=== PATIENT | female | born 1960 | race Caucasian/White ===

== ENCOUNTER 2017-09-16 19:18 | Emergency (ER) | payer BC ==
[~2017-09-16] VITALS: Ht 162.6 cm; Wt 81.6 kg
--- NOTE | 2017-09-16 20:18 | Diagnostic Imaging Report ---
Radiographs of the cervical spine - 5 views with bilateral obliques HISTORY: Pain COMPARISON: None available. FINDINGS: Bones: No acute displaced fracture. Osseous alignment is within normal limits. Joints: Scattered degenerative change. No osseous erosion. Soft tissues: The soft tissues appear unremarkable. IMPRESSION: Scattered degenerative change. No osseous erosion. Subtle fracture and soft tissue injury cannot be excluded based on this exam. If indicated MRI may be of benefit. Signed by: Dr. Jacob Vaughn M.D. on 09/16/2017 8:14 PM
== END 2017-09-16 21:05 | disposition left against medical advice (07) ==
LOC: ER 19:18
DX: M54.2 Cervicalgia (principal)
CPT/HCPCS: 72050

== ENCOUNTER 2018-08-03 09:17 | Emergency (ER) | payer BC ==
[~2018-08-03] VITALS: Ht 162.6 cm; Wt 81.6 kg
--- OUTSIDE RECORDS SUMMARY | 2018-08-03 09:20 | XMS REPORT ---
Author Author [facility] [place] Address Unknown Phone Unavailable Care Team Providers Care Doping Supervisor Name Role Phone Zaid DOBSON Unavailable Unavailable Problems This patient has no known problems. Allergies, Adverse Reactions, Alerts This patient has no known allergies or adverse reactions. Medications This patient has no known medications. Results Test Description Test Time Test Comments Text Results Atomic Results Result Comments CERVICAL SPINE 4 OR 5 VIEWS [place] [address] Patient Name: KRISTINE ZAVALA MR #: [id number] : 1960 Age/Sex: 57/F Req #: [id number] Adm Physician: Ordered by: MEGHAN DOBSON MD Report #: [id number] Location: ER Room/Bed: Procedure: [id number] DX/CERVICAL SPINE 4 OR 5 VIEWS Exam Date: 09/16/17 Exam Time: 1950 REPORT STATUS: Signed Radiographs of the cervical spine - 5 views with bilateral obliques HISTORY: Pain COMPARISON: None available. FINDINGS: Bones: No acute displaced fracture. Osseous alignment is within normal limits. Joints: Scattered degenerative change. No osseous erosion. Soft tissues: The soft tissues appear unremarkable. IMPRESSION: Scattered degenerative change. No osseous erosion. Subtle fracture and soft tissue injury cannot be excluded based on this exam. If indicated MRI may be of benefit. Signed by: Dr. Jacob Vaughn M.D. on 09/16/2017 8:14 PM Dictated By: JACOB VAUGHN MD, MD 13 Transcribed By: KELVIN on 09/16/172013 COPY TO: MEGHAN DOBSON MD
[2018-08-03] MEDS ORDERED: HYDROCODONE/APAP 5MG-325MG TAB PO NR (10:15)
[2018-08-03] MEDS ORDERED: DIAZEPAM 2 MG TAB PO NR (10:15)
[2018-08-03] MEDS ORDERED: KETOROLAC TROMETHAMINE 30 MG/ML VIAL IM PRN (10:15)
[2018-08-03] MEDS ORDERED: PREDNISONE 20 MG TAB PO NR (10:30)
[2018-08-03] MEDS ORDERED: PREDNISONE20 MG PO (10:32)
[2018-08-03] MEDS ORDERED: SKELAXIN800 MG PO (10:32)
[2018-08-03] MEDS ORDERED: ULTRAM 50MG50 MG PO (10:32)
[2018-08-03 12:25] VITALS: BP 137/72
== END 2018-08-03 12:35 | disposition home or self-care (01) ==
LOC: ER 09:19
DX: M54.5 Low back pain (principal); S39.012A Strain of muscle, fascia and tendon of lower back, initial encounter; X50.1XXA Overexertion from prolonged static or awkward postures, initial encounter; Y92.008 Other place in unspecified non-institutional (private) residence as the place of occurrence of the external cause
CPT/HCPCS: 99283; J1885; J7512

== ENCOUNTER 2019-05-06 18:13 | Emergency (ER) | payer BC ==
[~2019-05-06] VITALS: Ht 162.6 cm; Wt 81.6 kg
[~2019-05-06 18:13] MED LIST: PREDNISONE20 MG PO; SKELAXIN800 MG PO; ULTRAM 50MG50 MG PO
[2019-05-06] MEDS ORDERED: KETOROLAC TROMETHAMINE 60 MG/2 ML VIAL IM ONE (18:30)
[2019-05-06] MEDS ORDERED: CYCLOBENZAPRINE HCL 10 MG TAB PO ONE (18:30)
[2019-05-06] MEDS ORDERED: HYDROCODONE/APAP 10MG-325MG TAB PO ONE (18:30)
[2019-05-06] MEDS ORDERED: DEXAMETHASONE SOD PHOS 10 MG/1 ML VIAL IM ONE (18:30)
--- NOTE | 2019-05-06 20:20 | Diagnostic Imaging Report ---
EXAMINATION: Lumbar spine series. CLINICAL HISTORY: Bulging disc for 2 years, low back pain COMPARISON: CT lumbar spine 11/26/2010 DISCUSSION: 5 views of the lumbar spine are submitted for interpretation. Five nonrib-bearing lumbar type vertebral bodies are identified. No acute, displaced fractures or subluxation. No significant spondylolisthesis. Bilateral oblique views show no spondylolysis. Mild intervertebral disc space narrowing at L5-S1. Vertebral body heights are preserved. No lytic or blastic lesions. Slight leftward curvature of the lower lumbar spine. Sacroiliac joints are grossly unremarkable. Soft tissues have a normal appearance. IMPRESSION: 1. No acute abnormalities. 2. Mild degenerative disc changes at L5-S1 with slight leftward curvature of the lower lumbar spine. The staff physician below has personally reviewed this exam on the date of dictation. Signed by: Dr. Edison Cortez M.D. on 05/06/2019 8:17 PM
[2019-05-06 20:45] VITALS: BP 139/87
== END 2019-05-06 20:53 | disposition home or self-care (01) ==
LOC: ER 18:13
DX: S39.012A Strain of muscle, fascia and tendon of lower back, initial encounter (principal); X50.1XXA Overexertion from prolonged static or awkward postures, initial encounter; Y93.H2 Activity, gardening and landscaping; Y92.007 Garden or yard of unspecified non-institutional (private) residence as the place of occurrence of the external cause; G89.29 Other chronic pain
CPT/HCPCS: 72110; 99283; J1100; J1885

== ENCOUNTER 2021-12-30 07:24 | Emergency (ER) | payer BC ==
[~2021-12-30] VITALS: Ht 162.6 cm; Wt 81.6 kg
[~2021-12-30 07:24] MED LIST changes: +METHOCARBAMOL500 MG PO; +NAPROSYN500 MG PO
[2021-12-30] MEDS ORDERED: KETOROLAC TROMETHAMINE 30 MG/ML VIAL IM STA (07:36)
[2021-12-30] MEDS ORDERED: CYCLOBENZAPRINE HCL 10 MG TAB PO ONE (07:45)
[2021-12-30] MEDS ORDERED: CYCLOBENZAPRINE10 MG PO (07:50)
[2021-12-30] MEDS ORDERED: CYCLOBENZAPRINE HCL 10 MG TAB ONE (07:52)
[2021-12-30] MEDS ORDERED: KETOROLAC TROMETHAMINE 30 MG/ML VIAL ONE (07:52)
== END 2021-12-30 07:55 | disposition home or self-care (01) ==
LOC: ER 07:30
DX: M54.42 Lumbago with sciatica, left side (principal); G89.29 Other chronic pain
CPT/HCPCS: 99282; J1885

== ENCOUNTER 2022-07-14 08:48 | Emergency (ER) | payer BC, OTHER ==
[~2022-07-14] VITALS: Ht 162.6 cm; Wt 81.6 kg
[~2022-07-14 08:48] MED LIST changes: +CYCLOBENZAPRINE10 MG PO
[2022-07-14] MEDS ORDERED: DEXAMETHASONE SOD PHOS 10 MG/1 ML VIAL IM ONE (09:15)
[2022-07-14] MEDS ORDERED: KETOROLAC TROMETHAMINE 60 MG/2 ML VIAL IM ONE (09:15)
[2022-07-14] MEDS ORDERED: KETOROLAC TROMETHAMINE 30 MG/ML VIAL ONE (09:32)
[2022-07-14] MEDS ORDERED: MEDROL4 M2 PO (09:58)
[2022-07-14] MEDS ORDERED: MELOXICAM7.5 MG PO (09:58)
[2022-07-14] MEDS ORDERED: METHOCARBAMOL500 MG PO (09:58)
== END 2022-07-14 10:12 | disposition home or self-care (01) ==
LOC: ER 09:14
DX: M54.42 Lumbago with sciatica, left side (principal); X50.1XXA Overexertion from prolonged static or awkward postures, initial encounter; Y92.89 Other specified places as the place of occurrence of the external cause; G89.29 Other chronic pain
CPT/HCPCS: 99282; J1100; J1885

== ENCOUNTER 2024-02-19 16:56 | Emergency (ER) | payer BC ==
[~2024-02-19] VITALS: Ht 162.6 cm; Wt 81.6 kg
[~2024-02-19 16:56] MED LIST changes: +KETOROLAC TROME10 MG PO; +MEDROL4 M2 PO; +MELOXICAM7.5 MG PO; +METHOCARBAMOL750 MG PO; +NAPROXEN250 MG PO
[2024-02-19 17:03] VITALS: PULSE 67; RESP 15; TEMP 98.1; O2SAT 100
[2024-02-19] MEDS ORDERED: KETOROLAC TROMETHAMINE 60 MG/2 ML VIAL ONE (17:13)
[2024-02-19] MEDS ORDERED: DEXAMETHASONE SOD PHOS 10 MG/1 ML VIAL ONE (17:13)
[2024-02-19] MEDS: KETOROLAC TROMETHAMINE 60 MG/2 ML VIAL IM ONE (17:38)
[2024-02-19] MEDS: DEXAMETHASONE SOD PHOS 10 MG/1 ML VIAL IM ONE (17:39)
[2024-02-19] MEDS ORDERED: KETOROLAC TROME10 MG PO (18:10)
[2024-02-19] MEDS ORDERED: ULTRAM 50MG50 MG PO (18:10)
[2024-02-19] MEDS ORDERED: PREDNISONE20 MG PO (18:10)
== END 2024-02-19 18:18 | disposition home or self-care (01) ==
LOC: ER 17:56
DX: M54.42 Lumbago with sciatica, left side (principal); I10 Essential (primary) hypertension; G89.29 Other chronic pain
CPT/HCPCS: 99283; J1100; J1885

== ENCOUNTER 2025-02-24 21:58 | Observation (INO) | payer BC ==
[~2025-02-24] VITALS: Ht 162.6 cm; Wt 79.9 kg
[2025-02-24 22:10] VITALS: TEMP 97.9
[2025-02-24 22:42] LABS: BASOPHILS % 0.2 % (0.0-1.0); EOSINOPHILS % 1.8 % (0.0-6.0); LYMPHOCYTES % 39.9 % (18.0-39.1); MONOCYTES % 6.4 % (4.4-11.3); NEUTROPHILS % 51.5 % (38.7-80.0); RED CELL DISTRIBUTION WIDTH 12.8 % (11.7-14.4)
[2025-02-24 22:57] LABS: EST GLOMERULAR FILTRATION RATE 65.0 ML/MIN (>=60)
[2025-02-24] MEDS: Morphine 2mg Syringe 2 MG/ML SYR IV ONE (23:22)
[2025-02-24] MEDS: ONDANSETRON HCL INJ 2MG/ML 2ML 2 MG/ML VIAL IV STA (23:22)
[2025-02-25] VITALS (9 sets, daily range): BP systolic 140–157; BP diastolic 68–87; PULSE 61–79; RESP 16–18; TEMP 97.3–97.9; O2SAT 98–100
[2025-02-25] MEDS ORDERED: HYDRALAZINE HCL 20 MG/ML VIAL IV PRN (00:15)
[2025-02-25] MEDS ORDERED: SODIUM CHLORIDE FLUSH 10 ML SYR INJ PRN (00:15)
[2025-02-25] MEDS: Morphine 2mg Syringe 2 MG/ML SYR IV PRN (02:38)
[2025-02-25] MEDS ORDERED: OLMESARTAN MEDOX5 MG (07:31)
[2025-02-25] MEDS: ASPIRIN 81 MG ENTERIC COATED PO SCH (09:06)
[2025-02-25] MEDS: ONDANSETRON HCL INJ 2MG/ML 2ML 2 MG/ML VIAL IV PRN (12:48)
[2025-02-25] MEDS ORDERED: TIZANIDINE HCL4 MG PO (16:12)
[2025-02-25] MEDS ORDERED: METOPROLOL SUCC25 MG PO (16:12)
[2025-02-25] MEDS ORDERED: OMEPRAZOLE40 MG PO (16:12)
== END 2025-02-25 17:18 | disposition home or self-care (01) ==
LOC: ER 22:31 → ERHOLD 02-25 00:04 → MED/SURG2 02-25 01:53
PROVIDERS: ADMIT Internal Medicine; ATTEND Internal Medicine
DX: R07.89 Other chest pain (principal); I10 Essential (primary) hypertension; E78.00 Pure hypercholesterolemia, unspecified
CPT/HCPCS: 36415 ×2; 71045; 80053; 82550 ×2; 83880; 84484 ×2; 85025; 93005; 93306; 94799; 99284; G0378; J2270 ×2; J2405 ×2; J2470